=== PATIENT | female | born 1985 | race Caucasian/White ===

== ENCOUNTER → 2023-06-17 | Emergency (ER) | payer OTHER ==
[~2023-06-17] VITALS: Ht 170.2 cm; Wt 54.4 kg
[~2023-06-17] MED LIST: AZIT250T PO; KETOROLAC TROMETHAMINE INJ 30 MG/ML VIAL ONE
[2023-06-17] MEDS: KETOROLAC TROMETHAMINE INJ 60 MG/2 ML VIAL IM ONE (00:57)
[2023-06-17 01:09] LABS: BASOPHILS % (AUTO) 0.6 % (0.0-2.0); EOSINOPHILS # (AUTO) 0.1 K/uL (0.0-0.7); EOSINOPHILS % (AUTO) 1.2 % (0.0-6.0); HEMATOCRIT 34 % (33-45); HEMOGLOBIN 11.3 g/dL (11.5-14.8); LYMPHOCYTES # (AUTO) 2.1 K/uL (0.8-4.8); LYMPHOCYTES % (AUTO) 36.4 % (20.0-44.0); MEAN CORPUSCULAR HEMOGLOBIN 29 PG (26.0-33.0); MEAN CORPUSCULAR HGB CONC 33 g/dl (31.0-36.0); MEAN CORPUSCULAR VOLUME 88 fL (82-100); MONOCYTES # (AUTO) 0.3 K/uL (0.1-1.30); MONOCYTES % (AUTO) 4.6 % (2.0-12.0); NEUTROPHILS # (AUTO) 3.4 K/uL (1.8-8.9); NEUTROPHILS % (AUTO) 57.2 % (43.0-81.0); PLATELET COUNT (AUTO) 233 K/uL (150-450); RED BLOOD CELL COUNT(AUTO) 3.87 MIL/uL (4.0-5.2); RED CELL DISTRIBUTION WIDTH 13.7 % (11.5-15.0); WHITE BLOOD COUNT (AUTO) 5.9 K/uL (4.3-11.0)
[2023-06-17 01:23] LABS: CALCIUM, SERUM 9.1 mg/dL (8.5-10.1); CREATININE 0.8 mg/dL (0.6-1.3); POTASSIUM 3.5 mmol/L (3.5-5.1)
[2023-06-17 01:28] LABS: ALBUMIN 3.4 g/dL (3.4-5.0); BILIRUBIN,TOTAL 0.2 mg/dL (0.2-1.0); TOTAL PROTEIN, SERUM 6.8 g/dL (6.4-8.2)
[2023-06-17 01:44] LABS: MONOTEST NEGATIVE (NEGATIVE)
[2023-06-17 06:11] VITALS: BP 102/66; TEMP 98.1; O2SAT 98
== END | disposition home or self-care (01) ==
LOC: ER 00:13
DX: J02.9 Acute pharyngitis, unspecified (principal); R10.2 Pelvic and perineal pain; E78.5 Hyperlipidemia, unspecified; Z20.822 Contact with and (suspected) exposure to COVID-19
CPT/HCPCS: 99285; 70490; 87426; 96372; 85025; 87070; 86308; 36415; 87880; 80053; 84702; J1885; 86403-TC

== ENCOUNTER → 2023-11-20 | Emergency (ER) | payer OTHER ==
[~2023-11-20] VITALS: Ht 162.6 cm; Wt 51.7 kg
[~2023-11-20] MED LIST changes: +KETOROLAC TROMETHAMINE 15 MG/ML VIAL ONE; -KETOROLAC TROMETHAMINE INJ 30 MG/ML VIAL ONE
[2023-11-20 10:57] LABS: BASOPHILS % (AUTO) 0.8 % (0.0-2.0); EOSINOPHILS # (AUTO) 0.1 K/uL (0.0-0.7); EOSINOPHILS % (AUTO) 2.1 % (0.0-6.0); HEMATOCRIT 36 % (33-45); HEMOGLOBIN 11.7 g/dL (11.5-14.8); LYMPHOCYTES # (AUTO) 1.1 K/uL (0.8-4.8); LYMPHOCYTES % (AUTO) 34.5 % (20.0-44.0); MEAN CORPUSCULAR HEMOGLOBIN 27 PG (26.0-33.0); MEAN CORPUSCULAR HGB CONC 32 g/dl (31.0-36.0); MEAN CORPUSCULAR VOLUME 85 fL (82-100); MONOCYTES # (AUTO) 0.2 K/uL (0.1-1.30); MONOCYTES % (AUTO) 5.8 % (2.0-12.0); NEUTROPHILS # (AUTO) 1.7 K/uL (1.8-8.9); NEUTROPHILS % (AUTO) 56.8 % (43.0-81.0); PLATELET COUNT (AUTO) 222 K/uL (150-450); RED BLOOD CELL COUNT(AUTO) 4.26 MIL/uL (4.0-5.2); RED CELL DISTRIBUTION WIDTH 18.2 % (11.5-15.0); WHITE BLOOD COUNT (AUTO) 3.1 K/uL (4.3-11.0)
[2023-11-20] MEDS: IV NS 0.9% 1,000 ML BAG IV ONE (11:00)
[2023-11-20] MEDS: KETOROLAC TROMETHAMINE 15 MG/ML VIAL IV ONE (11:02)
[2023-11-20 11:08] LABS: APPEARANCE,URINE CLEAR (CLEAR); BILIRUBIN,URINE NEGATIVE (NEGATIVE); BLOOD, URINE TRACE-INTA Ery/uL (NEGATIVE); COLOR,URINE YELLOW (YELLOW); KETONES,URINE 1+ mg/dL (NEGATIVE); LEUKOCYTE ESTERASE ,URINE NEGATIVE (NEGATIVE); NITRITE, URINE NEGATIVE (NEGATIVE); PH,URINE 5.5 (5.0-8.0); PROTEIN,URINE NEGATIVE (NEGATIVE); UGLUCOSE NEGATIVE (NEGATIVE); UROBILINOGEN,URINE 0.2 EU/dL (0.2)
[2023-11-20 11:13] LABS: PREGNANCY TEST URINE QUAL NEGATIVE (NEGATIVE)
[2023-11-20 11:41] LABS: ALBUMIN 3.8 g/dL (3.4-5.0); BILIRUBIN,DIRECT 0.1 mg/dL (0.0-0.2); BILIRUBIN,TOTAL 0.4 mg/dL (0.2-1.0); CALCIUM, SERUM 9.2 mg/dL (8.5-10.1); CREATININE 0.7 mg/dL (0.6-1.3); POTASSIUM 3.8 mmol/L (3.5-5.1); TOTAL PROTEIN, SERUM 6.9 g/dL (6.4-8.2)
[2023-11-20 11:42] LABS: ADD URINE CULTURE YES; BACTERIA,URINE Many /HPF (None Seen); SQUAMOUS EPITHELIAL CELL,UR Many /HPF (None Seen); WBC,URINE 0-2 /HPF (0-3)
[2023-11-20 14:25] VITALS: BP 97/65; TEMP 98.6; O2SAT 100
== END | disposition home or self-care (01) ==
LOC: ER 10:25
DX: R10.31 Right lower quadrant pain (principal); M79.601 Pain in right arm; E78.5 Hyperlipidemia, unspecified
CPT/HCPCS: 99285; 74176; 96360; 71045; 93005; 85025; 80048; 87086; 83690; 80076; 84703; 81001; 36415; J7030; A4223; J1885

== ENCOUNTER → 2023-12-20 | Emergency (ER) | payer OTHER ==
[~2023-12-20] VITALS: Ht 165.1 cm; Wt 52.6 kg
[~2023-12-20] MED LIST changes: -KETOROLAC TROMETHAMINE 15 MG/ML VIAL ONE; +MECL-159 PO
[2023-12-20 13:33] VITALS: TEMP 98.1
[2023-12-20 14:56] LABS: BASOPHILS % (AUTO) 0.9 % (0.0-2.0); EOSINOPHILS % (AUTO) 0.9 % (0.0-6.0); HEMATOCRIT 33 % (33-45); HEMOGLOBIN 10.7 g/dL (11.5-14.8); LYMPHOCYTES # (AUTO) 0.9 K/uL (0.8-4.8); LYMPHOCYTES % (AUTO) 28.1 % (20.0-44.0); MEAN CORPUSCULAR HEMOGLOBIN 28 PG (26.0-33.0); MEAN CORPUSCULAR HGB CONC 33 g/dl (31.0-36.0); MEAN CORPUSCULAR VOLUME 84 fL (82-100); MONOCYTES # (AUTO) 0.2 K/uL (0.1-1.30); MONOCYTES % (AUTO) 6.4 % (2.0-12.0); NEUTROPHILS % (AUTO) 63.7 % (43.0-81.0); PLATELET COUNT (AUTO) 162 K/uL (150-450); RED BLOOD CELL COUNT(AUTO) 3.86 MIL/uL (4.0-5.2); RED CELL DISTRIBUTION WIDTH 15.3 % (11.5-15.0); WHITE BLOOD COUNT (AUTO) 3.2 K/uL (4.3-11.0)
[2023-12-20 15:05] LABS: CREATININE 0.7 mg/dL (0.6-1.3); POTASSIUM 3.9 mmol/L (3.5-5.1)
[2023-12-20 15:31] VITALS: BP 114/80; O2SAT 98
[2023-12-20 15:53] LABS: CALCIUM, SERUM 9.2 mg/dL (8.5-10.1)
[2023-12-20] MEDS: IV NS 0.9% 500 ML BAG IV ONE (16:10)
== END | disposition home or self-care (01) ==
LOC: ER 13:24
DX: R42 Dizziness and giddiness (principal); R51.9 Headache, unspecified; R10.2 Pelvic and perineal pain
CPT/HCPCS: 99284; 70450; 85025; 80048; 36415; 84702; J7040

== ENCOUNTER 2024-02-07 17:44 | Emergency (ER) | payer MEDICAID, OTHER ==
[~2024-02-07] VITALS: Ht 165.1 cm; Wt 51.3 kg
[2024-02-07 17:52] VITALS: BP 109/68; TEMP 97.5
[2024-02-07 18:10] VITALS: O2SAT 99
== END 2024-02-07 18:43 | disposition home or self-care (01) ==
LOC: ER 17:49
DX: I80.9 Phlebitis and thrombophlebitis of unspecified site (principal); E78.00 Pure hypercholesterolemia, unspecified; Z79.1 Long term (current) use of non-steroidal anti-inflammatories (NSAID)

== ENCOUNTER 2024-02-23 16:58 | Emergency (ER) | payer MEDICAID ==
[~2024-02-23] VITALS: Ht 167.6 cm; Wt 50.8 kg
[2024-02-23] MEDS ORDERED: IBUPROFEN 600 MG TABLET ONE (17:43)
[2024-02-23] MEDS: IBUPROFEN 600 MG TABLET PO ONE (17:47)
[2024-02-23] MEDS ORDERED: IBUP-1953 PO (19:53)
[2024-02-23 19:59] VITALS: BP 107/68; TEMP 97.6; O2SAT 99
== END 2024-02-23 19:59 | disposition home or self-care (01) ==
LOC: ER 16:58
DX: S30.0XXA Contusion of lower back and pelvis, initial encounter (principal); Z79.899 Other long term (current) drug therapy; W10.8XXA Fall (on) (from) other stairs and steps, initial encounter; Y93.89 Activity, other specified; Y92.098 Other place in other non-institutional residence as the place of occurrence of the external cause; Y99.8 Other external cause status
CPT/HCPCS: 72192-TC